=== PATIENT | female | born 1970 | race Caucasian/White ===

== ENCOUNTER → 2016-07-29 | Outpatient (CLI) | payer BC ==
[~2016-07-29] MED LIST: ALPR2TAB; BSP10T; CYCL5TAB11; GBPN300C PO; HYDR-3720; LORA-407 PO; MELO7.5T; PANT20TA2 PO
--- NOTE | 2016-08-04 11:37 | Diagnostic Imaging Report ---
EXAMINATION: Bilateral screening mammogram with a Computer Aided Detection (CAD) system. INDICATION: Screening. PERSONAL HISTORY: No current complaints stated on the questionnaire. COMPARISON: 04/14/2013. FINDINGS: The breasts are composed of scattered fibroglandular densities. There is a 6 mm new nodule seen along the posterior central aspect of the right MLO view which is not well seen on the prior exam. This is perhaps a small intramammary lymph node in the axillary tail of the right breast. The left breast demonstrates no significant abnormality. IMPRESSION: A 6 mm smoothly marginated nodule seen along the far posterior aspect of the right MLO view is likely an intramammary lymph node in the axillary tail of the right breast. A right breast and axilla ultrasound would be recommended to ensure no concerning underlying lesion is seen. ACR BI-RADS Category 0: Incomplete. (Needs additional imaging evaluation). Result letter will be mailed to the patient. Note: At least 10% of breast cancer is not imaged by mammography. Dictated by: Dictated on workstation # [id number]
== END ==
LOC: RAD 14:42
PROVIDERS: ATTEND Obstetrics & Gynecology
DX: Z12.31 Encounter for screening mammogram for malignant neoplasm of breast (principal)
CPT/HCPCS: 77067

== ENCOUNTER 2016-08-11 13:36 | Outpatient (RCR) | payer BC | END 2016-08-11 16:00 | disposition home or self-care (01) | LOC: WOUNDCARE 13:36 | PROVIDERS: ATTEND Nurse Practitioner | DX: T81.31XA Disruption of external operation (surgical) wound, not elsewhere classified, initial encounter (principal) | CPT/HCPCS: 99213 ==

== ENCOUNTER → 2016-11-27 | Outpatient (CLI) | payer BC ==
[~2016-11-27] MED LIST changes: +AMOX1TAB12; +CLIN300C11; +ESTRADIOL; +HYDR-3820; +LISI10TA2
== END ==
LOC: WOUNDCARE 09:18
PROVIDERS: ATTEND Surgery
DX: L98.493 Non-pressure chronic ulcer of skin of other sites with necrosis of muscle (principal); T81.31XA Disruption of external operation (surgical) wound, not elsewhere classified, initial encounter; E66.01 Morbid (severe) obesity due to excess calories; R73.01 Impaired fasting glucose
CPT/HCPCS: 11042

== ENCOUNTER 2016-11-28 09:28 | Emergency (ER) | payer BC ==
[~2016-11-28] VITALS: Ht 165.1 cm; Wt 95.3 kg
[~2016-11-28 09:28] MED LIST changes: -AMOX1TAB12; -CLIN300C11; -ESTRADIOL; -HYDR-3820; -LISI10TA2
[2016-11-28] MEDS ORDERED: LIDOCAINE/EPI 2% 1:100,00 (XYLOCAINE) 20 ML VIAL ONE (09:50)
[2016-11-28] MEDS ORDERED: AMOX1TAB12 (10:07)
[2016-11-28] MEDS ORDERED: LISI10TA2 (10:07)
[2016-11-28] MEDS ORDERED: ESTRADIOL (10:07)
[2016-11-28] MEDS ORDERED: CLIN300C11 (10:07)
[2016-11-28] MEDS ORDERED: HYDR-3820 (10:07)
--- NOTE | 2016-11-28 10:38 | ED General ---
General Chief Complaint: General Problems/Pain Stated Complaint: BLEEDING FROM BACK SURG Nursing Triage Note: PATIENT WAS FOUND LEANING OVER NURSING STATION ASKED IF I COULD HELP HER STATES I NEED TO BE SEEN NOW. PATIENT REPORTS THAT SHE HAS HAD 2 BACK SURG WITH [facility] LAST SURG ON TOADAY APX 8A NOTED BLEEIDNG FROM SITE. WOULD HAS BEEN LEFT OPEN. HAS BEEN PACKING WITH [employer]. WAS UPSTAIRS VISITING HER DAD WHEN SHE FELT LIKE IT WAS BLEEDING BAKER ON ADMIT SHE HAD PAPER TOWELS PACKED IN AND OVER SITE WITH NO PACKING IN PLACE. Nursing Sepsis Screen: No Definite Risk Source of Information: Patient Exam Limitations: No Limitations History of Present Illness Time Seen by Provider: 09:30 Initial Comments This 46-year-old woman presents to the emergency room with a bleeding surgical wound on her lower back. Her initial surgery was in June by Dr. Leiva. She had complications requiring wound debridement on November 12. Wound has been left open and she has been packing it at home. She received wound care yesterday by Dr. Johnson. Wound was debrided. Patient packs her wound twice daily at home. When she changed her packing this morning she had difficulty removing it because of dried blood. She soaked it for quite some time and sterile water to get the dressings off. She then noticed the blood was squirting through the new gauze dressing. She denies any use of blood thinners. There is still active bleeding at this time. Allergies and Home Medications Allergies Coded Allergies: No Known Drug Allergies (Unverified , 11/30/08) Home Medications Alprazolam 2 Mg Tab.sr.24h, (Reported) Amoxicillin/Potassium Clav 1 Each Tablet, (Reported) Buspirone Hcl 10 Mg Tablet, (Reported) Clindamycin HCl 300 Mg Capsule, (Reported) Cyclobenzaprine Hcl 5 Mg Tablet, (Reported) Gabapentin 300 Mg Cap, 300 MG PO BID, (Reported) Hydrocodone Bit/Acetaminophen 1 Ea Tab, (Reported) Hydrocodone/Acetaminophen 1 Each Tablet, (Reported) Lisinopril 10 Mg Tablet, (Reported) Lorazepam 2 Mg Tablet, 1 TAB PO BID, (Reported) Meloxicam 7.5 Mg Tablet, (Reported) Pantoprazole Sodium 20 Mg Tablet.dr, 20 MG PO DAILY, (Reported) [Estradiol] , (Reported) Constitutional: no symptoms reported EENTM: no symptoms reported Respiratory: no symptoms reported Cardiovascular: no symptoms reported Gastrointestinal: no symptoms reported Genitourinary: no symptoms reported Musculoskeletal: no symptoms reported Skin: see HPI Psychiatric/Neurological: No Symptoms Reported Hematologic/Lymphatic: See HPI Immunological/Allergic: no symptoms reported Past Imzoara-Ocbwrg-Ryxwbg Hx Patient Social History Alcohol Use: Denies Use Recreational Drug Use: No Smoking Status: Never a Smoker Recent Foreign Travel: No Contact w/Someone Who Travel: No Recent Infectious Disease Expo: No Recent Hopitalizations: Yes (2004) Surgeries History of Surgeries: Yes Surgeries: Orthopedic Respiratory History of Respiratory Disorde: No Cardiovascular History of Cardiac Disorders: No Neurological History of Neurological Disord: No Reproductive System : No Hx Reproductive Disorders: Yes (last pap-smear 1 yr ago) Genitourinary History of Genitourinary Disor: No Gastrointestinal History of Gastrointestinal Di: Yes Gastrointestinal Disorders: Gall Bladder Disease Musculoskeletal History of Musculoskeletal Dis: Yes Musculoskeletal Disorders: Fibromyalgia Endocrine History of Endocrine Disorders: No HEENT History of HEENT Disorders: No Cancer History of Cancer: No Psychosocial History of Psychiatric Problem: Yes Behavioral Health Disorders: Anxiety, Depression Blood Transfusions History of Blood Disorders: No Physical Exam Vital Signs Vital Sign - Last 12Hours 11/28/16 09:35 Temp 98.6 Pulse 110 Resp 18 B/P (MAP) 141/81 Pulse Ox 98 O2 Delivery Room Air Capillary Refill : Less Than 3 Seconds General Appearance: No Apparent Distress, WD/WN HEENT: Normal ENT Inspection Extremity: Normal Inspection Neurologic/Psychiatric: Alert, Oriented x3, No Motor/Sensory Deficits, Normal Mood/Affect Skin: Warm/Dry, Other (There is an open wound on the lower back with a pulsating bleed at the superior aspect.) Additional Procedures : Progress Wound was rinsed with normal saline and examined. A pulsating bleeding was found at the superior aspect. Approximately 8-9 mL of lidocaine with epinephrine was injected around the bleeding area. Some lidocaine with epinephrine was also placed on the surface of the bleeding tissue. Direct pressure was then applied with sterile gauze. Wound did eventually stop the bleeding and was completely dry. A piece of Gelfoam was placed over the bleeding area and wound was packed with saline soaked gauze. Sterile gauze dressing was placed over the wound. Progress/Results/Core Measures Results/Orders My Orders Vital Signs/I&O Blood Pressure Mean: 101 Departure Impression Impression: Primary Impression: Bleeding from wound Disposition: HOME, SELF-CARE Condition: Improved Departure-Patient Inst. Decision time for Depature: 10:37 Referrals: ANDREAS TELLEZ MD (PCP/Family) Primary Care Physician Patient Instructions: NO INSTRUCTIONS GIVEN Add. Discharge Instructions: Follow wound care instructions as previously directed by Dr. Pedraza. If bleeding returns, apply firm pressure for 15-20 minutes. If bleeding does not resolve, return to care. Avoid mechanical irritation of the wound today. All discharge instructions reviewed with patient and/or family. Voiced understanding. Copy Copies To 1: ÁNGEL PEDRAZA MD, JOSHUA T MD Nov 28, 2016 10:38
[2016-11-28 10:40] VITALS: BP 141/81
[2016-11-28] MEDS ORDERED: LIDOCAINE/EPI 2% 1:100,00 (XYLOCAINE) 20 ML VIAL INJ ONE (10:45)
== END 2016-11-28 10:40 | disposition home or self-care (01) ==
LOC: ER 09:28
DX: M96.831 Postprocedural hemorrhage of a musculoskeletal structure following other procedure (principal)
CPT/HCPCS: 99282

== ENCOUNTER → 2016-12-04 | Outpatient (CLI) | payer BC ==
[~2016-12-04] MED LIST changes: +AMOX1TAB12; +CLIN300C11; +ESTRADIOL; +HYDR-3820; +LISI10TA2
== END ==
LOC: WOUNDCARE 13:23
PROVIDERS: ATTEND Surgery
DX: L98.493 Non-pressure chronic ulcer of skin of other sites with necrosis of muscle (principal); T81.31XA Disruption of external operation (surgical) wound, not elsewhere classified, initial encounter; E66.01 Morbid (severe) obesity due to excess calories
CPT/HCPCS: 11042; 87070; 87075; 87077; 87186; 87205

== ENCOUNTER → 2016-12-11 | Outpatient (CLI) | payer BC | LOC: WOUNDCARE 13:26 | PROVIDERS: ATTEND Surgery | DX: L98.493 Non-pressure chronic ulcer of skin of other sites with necrosis of muscle (principal); T81.31XA Disruption of external operation (surgical) wound, not elsewhere classified, initial encounter; E66.01 Morbid (severe) obesity due to excess calories; R73.01 Impaired fasting glucose | CPT/HCPCS: 11042 ==

== ENCOUNTER → 2016-12-18 | Outpatient (CLI) | payer BC | LOC: WOUNDCARE 11:14 | PROVIDERS: ATTEND Surgery | DX: L98.493 Non-pressure chronic ulcer of skin of other sites with necrosis of muscle (principal); T81.31XA Disruption of external operation (surgical) wound, not elsewhere classified, initial encounter; E66.01 Morbid (severe) obesity due to excess calories | CPT/HCPCS: 11042 ==

== ENCOUNTER → 2016-12-25 | Outpatient (CLI) | payer BC | LOC: WOUNDCARE 13:19 | PROVIDERS: ATTEND Surgery | DX: L98.493 Non-pressure chronic ulcer of skin of other sites with necrosis of muscle (principal); B96.5 Pseudomonas (aeruginosa) (mallei) (pseudomallei) as the cause of diseases classified elsewhere; T81.31XA Disruption of external operation (surgical) wound, not elsewhere classified, initial encounter; E66.01 Morbid (severe) obesity due to excess calories | CPT/HCPCS: 11042 ==

== ENCOUNTER → 2017-01-04 | Outpatient (CLI) | payer BC | LOC: WOUNDCARE 09:41 | PROVIDERS: ATTEND Surgery | DX: L98.493 Non-pressure chronic ulcer of skin of other sites with necrosis of muscle (principal); T81.31XA Disruption of external operation (surgical) wound, not elsewhere classified, initial encounter; B96.5 Pseudomonas (aeruginosa) (mallei) (pseudomallei) as the cause of diseases classified elsewhere; E66.01 Morbid (severe) obesity due to excess calories; Z68.35 Body mass index [BMI] 35.0-35.9, adult | CPT/HCPCS: 11042; 87070; 87075; 87205 ==

== ENCOUNTER → 2017-01-15 | Outpatient (CLI) | payer BC | LOC: WOUNDCARE 10:00 | PROVIDERS: ATTEND Surgery | DX: L98.492 Non-pressure chronic ulcer of skin of other sites with fat layer exposed (principal); T81.31XA Disruption of external operation (surgical) wound, not elsewhere classified, initial encounter; E66.01 Morbid (severe) obesity due to excess calories | CPT/HCPCS: 11042 ==

== ENCOUNTER → 2017-08-02 | Outpatient (CLI) | payer BC ==
--- NOTE | 2017-08-03 08:10 | Diagnostic Imaging Report ---
Digital mammogram bilateral screening with 3-D tomosynthesis This study was compared to the prior exams of 07/29/2016 and 04/14/2013. At this time, there are no current complaints. The current study was also evaluated with a Computer Aided Detection (CAD) system. FINDINGS: There are scattered fibroglandular densities in both breasts which could obscure a lesion. Overall, there does not appear to have been any significant change when compared to the prior exam. No primary or secondary sign of malignancy is noted. IMPRESSION: There is no radiographic evidence for malignancy. ACR BI-RADS Category 1: Negative. Result letter will be mailed to the patient. Note: At least 10% of breast cancer is not imaged by mammography. Dictated by: Dictated on workstation # [id number]
== END ==
LOC: RAD 10:20
PROVIDERS: ATTEND Obstetrics & Gynecology
DX: Z12.31 Encounter for screening mammogram for malignant neoplasm of breast (principal)
CPT/HCPCS: 77067